=== PATIENT | female | born 1995 | race African-American/Black ===

== ENCOUNTER 2018-05-03 20:17 | Emergency (ER) | payer BC ==
[~2018-05-03] VITALS: Ht 162.6 cm; Wt 60.1 kg
[2018-05-03 20:33] LABS: APPEARANCE CLOUDY ((CLEAR)); BILIRUBIN NEGATIVE; BLOOD LARGE; COLOR AMBER ((YELLOW)); GLUCOSE (STRIP) NEGATIVE; KETONES NEGATIVE; LEUKOCYTES LARGE; NITRITE NEGATIVE; PROTEIN (STRIP) >=500; SPECIFIC GRAVITY 1.019 (1.000-1.030)
[2018-05-03 20:53] LABS: RED BLOOD CELLS TNTC /HPF (0-5); UCUL ADDED? YES; WHITE BLOOD CELLS TNTC /HPF (0-5)
[2018-05-03] MEDS ORDERED: MOTRIN800 MG PO (22:12)
[2018-05-03] MEDS ORDERED: KEFLEX500 MG PO (22:12)
[2018-05-03] MEDS ORDERED: PYRIDIUM200 MG PO (22:12)
[2018-05-03 22:25] VITALS: BP 97/65
[2018-05-03 22:32] LABS: SOURCE URINE
== END 2018-05-03 22:26 | disposition home or self-care (01) ==
LOC: EXP 20:17 → EME 20:17 → EXP 22:26
PROVIDERS: Physician Assistant
DX: N39.0 Urinary tract infection, site not specified (principal); N72 Inflammatory disease of cervix uteri; Z11.3 Encounter for screening for infections with a predominantly sexual mode of transmission; Z88.0 Allergy status to penicillin
CPT/HCPCS: 81003; 81025; 87077; 87086; 87186; 87491; 87591; 99281; 99284; J0696